=== PATIENT | male | born 1955 | race African-American/Black ===

== ENCOUNTER → 2018-06-13 10:23 | Outpatient (CLI) | payer BC | END | disposition home or self-care (01) | LOC: D.MRI 10:23 | PROVIDERS: ATTEND Nurse Practitioner Family | DX: M25.461 Effusion, right knee (principal) ==

== ENCOUNTER 2018-08-10 21:15 | Inpatient (IN) | payer BC ==
[~2018-08-10] VITALS: Ht 167.6 cm; Wt 79.4 kg
[2018-08-10] MEDS ORDERED: FLOMAX0.4 MG PO (21:25)
[2018-08-10 21:56] LABS: BASOPHILS 0.3 % (0-2); EOSINOPHILS 1.4 % (0-7); HEMATOCRIT 38.6 % (42.0-54.0); HEMOGLOBIN 12.6 g/dL (13.5-17.5); IMMATURE GRANULOCYTES 0.3 % (0-5); LYMPHOCYTES 37.3 % (15-50); MCHC 32.6 g/dL (31.0-37.0); MCV 88.7 fL (80.0-100.0); MEAN PLATELET VOLUME 10.7 fL (7.4-10.4); NEUTROPHILS 49.7 % (40-80); PLATELET COUNT 139 10x3/uL (130-400); RBC 4.35 10x6/uL (4.20-6.10); RDW 12.6 % (11.5-14.5); WBC 3.6 10x3/uL (4.8-10.8)
[2018-08-10 22:03] LABS: INR 1.11 (0.85-1.17); PROTIME 13.8 SECONDS (11.6-15.0)
[2018-08-10 22:04] LABS: APTT 30.6 SECONDS (22.8-39.4)
[2018-08-10 22:09] LABS: ALBUMIN 3.5 g/dL (3.4-5.0); ANION GAP 12.1 mmol/L (8-16); BILIRUBIN - TOTAL 1.05 mg/dL (0.2-1.3); CALCIUM 8.2 mg/dL (8.5-10.1); CARBON DIOXIDE 26.3 mmol/L (21.0-32.0); CREATININE - SERUM 1.1 mg/dL (0.6-1.3); POTASSIUM - SERUM 3.4 mmol/L (3.5-5.1); PROTEIN - SERUM 7.1 g/dL (6.4-8.2)
[2018-08-10 22:18] LABS: MAGNESIUM - SERUM 1.8 mg/dL (1.8-2.4); TROPONIN-I 0.045 ng/mL (0.000-0.060)
--- NOTE | 2018-08-10 23:33 | NUR ---
PT GIVEN JUICE AND SANDWICH AT THIS TIME.
[2018-08-11] MEDS ORDERED: SINGULAIR10 MG PO (00:42)
[2018-08-11] MEDS ORDERED: TERAZOSIN HCL2 MG PO (00:42)
[2018-08-11 00:57] VITALS: BP 115/55; BMI 28.3
--- NOTE | 2018-08-11 01:07 | NUR ---
RECIEVED REPORT FROM BISI HODGE IN ER. ARRIVED TO FLOOR AT 0010 IN W/C WITH . ALERT AND ORIENTED X4. UP AD DIONI. LUNG SOUNDS WHEEZES TO RIGHT SIDE AND CRACKLES IN LEFT LOBES. ABSX4. NO EDEMA OBSERVED. SKIN WARM AND MOIST ALSO, INTACT. DENIES ANY CHEST PAIN AT THIS TIME. IV TO LEFT AC SL.. TELEMETRY IN PLACE. DENIES ANY NEEDS AT THIS TIME.
--- NOTE | 2018-08-11 03:16 | NUR ---
PT UNSURE OF ALL HIS MEDICATIONS. SPOUSE WILL BRING LIST OF MEDICATIONS TOMORROW.
[2018-08-11 04:00] VITALS: BP 106/64
--- NOTE | 2018-08-11 05:40 | NUR ---
TEMP 102.5. NOTIFIED DR. SANTIAGO WITH NEW ORDERS FOR TYLENOL 650MG PO Q6 HR PRN FOR TEMP. ROBITUSSIN 10ML FOR CONGESTION AND STAT CHEST XRAY ALSO, LEVAQUIN 750MG IV Q24 HRS. SPOUSE AT BEDSIDE AND AWARE.
[2018-08-11 05:54] LABS: BASOPHILS 0.3 % (0-2); EOSINOPHILS 1.2 % (0-7); HEMATOCRIT 36.6 % (42.0-54.0); HEMOGLOBIN 11.8 g/dL (13.5-17.5); LYMPHOCYTES 49.5 % (15-50); MCH 28.8 pg (26.0-34.0); MCHC 32.2 g/dL (31.0-37.0); MCV 89.3 fL (80.0-100.0); MEAN PLATELET VOLUME 10.8 fL (7.4-10.4); MONOCYTES 11.2 % (2-11); NEUTROPHILS 37.8 % (40-80); PLATELET COUNT 147 10x3/uL (130-400); RDW 12.6 % (11.5-14.5); WBC 3.3 10x3/uL (4.8-10.8)
[2018-08-11 06:17] LABS: ALBUMIN 3.1 g/dL (3.4-5.0); BILIRUBIN - TOTAL 1.23 mg/dL (0.2-1.3); CARBON DIOXIDE 28.5 mmol/L (21.0-32.0); CREATININE - SERUM 1.1 mg/dL (0.6-1.3); POTASSIUM - SERUM 3.5 mmol/L (3.5-5.1); PROTEIN - SERUM 6.3 g/dL (6.4-8.2); TROPONIN-I 0.046 ng/mL (0.000-0.060)
[2018-08-11 07:46] VITALS: BP 95/59
[2018-08-11] MEDS ORDERED: IBUPROFEN800 MG PO (10:51)
[2018-08-11 11:46] VITALS: BP 113/64
[2018-08-11 13:01] LABS: % SATURATION 16 % (15-55); IRON 31 ug/dl (35-150); TOTAL IRON BIND CAPACITY 191 ug/dl (260-445); UNSAT IRON BIND CAPACITY 160 ug/dl (150-375)
[2018-08-11 15:21] VITALS: BP 119/68
--- NOTE | 2018-08-11 16:49 | NUR ---
ALERT AND ORIENTED X4. SITTING UP IN BED. REMAINS AFEBRILE DURING SHIFT. CURRENT TEMP 98.9. SPOUSE AT BEDSIDE. SINUS RHYTHM 62 ON TELEMETRY. DENIES ANY NEEDS. CONTINUE PLAN OF CARE AND SAFETY PRECAUTIONS.
[2018-08-11 17:48] LABS: APPEARANCE CLEAR (CLEAR); BILIRUBIN NEGATIVE (NEGATIVE); COLOR DK YELLOW (YELLOW); GLUCOSE NEGATIVE (NEGATIVE); KETONE NEGATIVE (NEGATIVE); NITRITE NEGATIVE (NEGATIVE); PROTEIN TRACE mg/dL (NEGATIVE); SPECIFIC GRAVITY 1.025 (1.005-1.020); UROBILINOGEN NORMAL (NORMAL)
--- NOTE | 2018-08-11 17:59 | NUR ---
ALERT AND ORIENTED X4. SITTING UP IN BED. UA COLLECTED AND TAKEN TO LAB. NO CHANGE. CONTINUE PLAN OF CARE AND SAFETY PRECAUTIONS.
--- NOTE | 2018-08-11 19:37 | NUR ---
RECIEVED UP IN BED WITH EYES OPEN. ALERT AND ORIENTED X4. C/O COUGH THAAT IS CAUSING CHEST PAIN. GUIASSFEN GIVEN PER ORDERS. REQUESTED COFF. COFF NAD WATER GIVEN IV TO LT FA SL.. TELEMETRY IN PLACE. DENIES ANY OTHER NEEDS.
[2018-08-11 20:00] VITALS: BP 121/67
[2018-08-12 00:11] VITALS: BP 116/61
[2018-08-12 04:00] VITALS: BP 118/72
[2018-08-12 06:25] LABS: BASOPHILS 0.6 % (0-2); EOSINOPHILS 5.7 % (0-7); HEMATOCRIT 35.9 % (42.0-54.0); HEMOGLOBIN 11.6 g/dL (13.5-17.5); LYMPHOCYTES 46.3 % (15-50); MCH 28.5 pg (26.0-34.0); MCHC 32.3 g/dL (31.0-37.0); MCV 88.2 fL (80.0-100.0); MEAN PLATELET VOLUME 10.8 fL (7.4-10.4); MONOCYTES 10.8 % (2-11); NEUTROPHILS 36.6 % (40-80); PLATELET COUNT 136 10x3/uL (130-400); RBC 4.07 10x6/uL (4.20-6.10); RDW 12.4 % (11.5-14.5); WBC 3.2 10x3/uL (4.8-10.8)
[2018-08-12 06:42] LABS: CALC OSMOLALITY 276 mosm/kg (275-300); CALCIUM 8.1 mg/dL (8.5-10.1); CARBON DIOXIDE 30.5 mmol/L (21.0-32.0); CHLORIDE - SERUM 103 mmol/L (98-107); CREATININE - SERUM 0.9 mg/dL (0.6-1.3); GLUCOSE 106 mg/dL (74-106); POTASSIUM - SERUM 3.4 mmol/L (3.5-5.1); SODIUM 139 mmol/L (136-145); UREA NITROGEN 11 mg/dL (7-18); eGFR NON AFRICAN AMERICAN 90 mL/min (90-120)
--- NOTE | 2018-08-12 08:36 | NUR ---
ALERT AND ORIENTED. TELEMERTY SHOWS SR. UP AB DIONI. NO NEEDS VOICED. LEFT FA SL WILL MONITOR
[2018-08-12 09:01] VITALS: BP 114/63
[2018-08-12 11:41] VITALS: BP 115/60
[2018-08-12 13:42] VITALS: Ht 167.6 cm; Wt 79.4 kg
--- NOTE | 2018-08-12 15:56 | NUR ---
I have reviewed this patient and I concur with the Shift Assessment completed by the Licensed Practical Nurse today this shift.
[2018-08-12 18:48] VITALS: BP 106/61
--- NOTE | 2018-08-12 19:29 | NUR ---
RECIEVED RESTING IN BED WITH EYES CLOSED AND TV ON. EASILY AROUSES WITH VERBAL STIMULI. ORIENTED X4. IV TO LEFT FA SL.. TELEMETRY IN PLACE. DENIES ANY NEEDS AT THIS TIME.
[2018-08-12 20:00] VITALS: BP 122/62
--- NOTE | 2018-08-12 20:02 | NUR ---
SWAB COLLECTED FOR INFLUENZA TEST. SENT TO LAB.
[2018-08-13] VITALS: BP 119/58
[2018-08-13 04:00] VITALS: BP 91/60
[2018-08-13 05:45] LABS: BASOPHILS 0.5 % (0-2); EOSINOPHILS 7.7 % (0-7); HEMATOCRIT 37.3 % (42.0-54.0); HEMOGLOBIN 12.3 g/dL (13.5-17.5); LYMPHOCYTES 31.8 % (15-50); MCH 28.9 pg (26.0-34.0); MCV 87.6 fL (80.0-100.0); MEAN PLATELET VOLUME 10.9 fL (7.4-10.4); MONOCYTES 10.9 % (2-11); NEUTROPHILS 49.1 % (40-80); PLATELET COUNT 145 10x3/uL (130-400); RBC 4.26 10x6/uL (4.20-6.10); RDW 12.3 % (11.5-14.5)
[2018-08-13 06:04] LABS: CALC OSMOLALITY 278 mosm/kg (275-300); CARBON DIOXIDE 30.4 mmol/L (21.0-32.0); CHLORIDE - SERUM 104 mmol/L (98-107); CREATININE - SERUM 0.9 mg/dL (0.6-1.3); GLUCOSE 106 mg/dL (74-106); POTASSIUM - SERUM 3.9 mmol/L (3.5-5.1); SODIUM 139 mmol/L (136-145); eGFR NON AFRICAN AMERICAN 90 mL/min (90-120)
[2018-08-13 06:05] LABS: UREA NITROGEN 14 mg/dL (7-18)
--- NOTE | 2018-08-13 07:00 | NUR ---
RECEIVED REPORT. ASSUMED CARE OF PATIENT. PATIENT RESTING IN BED WITH EYES OPEN, ATTENTION TOWARD TELEVISION. CALL LIGHT WITHIN REACH. NO DISTRESS. RESP EVEN AND UNLABORED. NO COUGH NOTED AT THIS TIME. PATIENT STATES HE FEELS MUCH BETTER THAN ON DAY OF ADMISSION.
--- NOTE | 2018-08-13 07:20 | NUR ---
IN TO SEE PATIENT FOR AM ROUNDS.
[2018-08-13 08:09] VITALS: BP 123/69
[2018-08-13 08:13] LABS: FOLATE (FOLIC ACID) - SERUM >20.0 ng/mL (>3.0)
--- NOTE | 2018-08-13 11:30 | NUR ---
RESTING IN BED WITH EYES OPEN. MALE VISITOR AT BEDSIDE. CALL LIGHT WITHIN REACH. NO DISTRESS. FRESH ICE WATER PROVIDED.
[2018-08-13 12:09] VITALS: BP 94/60
--- NOTE | 2018-08-13 14:00 | NUR ---
IV FLUSHED FOR PATENTCY. NO DISTRESS. PATIENT SISTERS AT BEDSIDE. CALL LIGHT WITHIN REACH.
--- NOTE | 2018-08-13 16:24 | NUR ---
PATIENT FOUND SITTING IN ROOM. PATIENT STATED SHE ARRIVED TO ROOM ABOUT 1610. PATIENT SITTING ON SIDE OF BED. PATIENTS DAUGHTER IN ROOM. NO IV ACCESS PATIENT IS A DIRECT ADMIT FROM OFFICE. ORIENTED TO ROOM. CALL LIGHT JERICA SANCHEZ. AWAITING FOR MEDICATION LIST FROM DR. CRAMER OFFICE TO FAX LIST OVER. PATIENT ON ROOM AIR, DOES WEAR HOME OXYGEN 1L/NC WHILE SLEEPING. NO DISTRESS.
[2018-08-13 16:34] VITALS: BP 132/90; BP 136/70
--- NOTE | 2018-08-13 17:30 | NUR ---
RESTING IN BED WITH EYES OPEN. PATIENT SISTERS HAVE LEFT FOR THE DAY. CALL LIGHT WITHIN REACH. NO DISTRESS.
[2018-08-13] MEDS ORDERED: LEVAQUIN750 MG PO (18:23)
--- NOTE | 2018-08-13 21:13 | NUR ---
REMOVED PATIENT'S LEFT AC PIV. NO BLEEDING NOTED. REVIEWED PATIENT'S DISCHARGE INSTRUCTIONS PATIENT STATED HE UNDERSTOOD AND SIGNED PAPERWORK. ASSISTED PATIENT TO FRONT DOOR VIA WHEELCHAIR.
--- NOTE | 2018-08-15 09:43 | MORECARE ---
CASE MANAGEMENT DISCHARGE SUMMARY PATIENT: HANNAH ODOM UNIT: [id number] ADM DATE: 08/11/18 AGE: 62 : 51 SEX: M ROOM/BED: D.2125 AUTHOR: NATO ARELLANO PHYSICIAN: REFERRING PHYSICIAN: PEARL SANTIAGO MD DATE OF SERVICE: 08/15/18 Discharge Plan Patient Name: HANNAH ODOM Facility: [facility]:[place] : 1955 Planned Disposition: Home Anticipated Discharge Date: 08/13/18 Discharge Date: 08/13/2018 Expected LOS: 2 Initial Reviewer: [email or web address] Initial Review Date: 08/15/2018 Generated: 08/15/18 10:43 am Patient Name: HANNAH ODOM Page [id number] at 0943 All edits/amendments must be made on the electronic document DICTATION DATE: 08/15/18942 ASBESTOS CLOTH INSPECTOR: DM 08/15/1843 RPT#: [id number] DC DATE:08/13/18 STATUS: DIS IN [facility] [address] [place] [address] END OF REPORT
== END 2018-08-13 21:16 | disposition home or self-care (01) | DRG 206 ==
LOC: D.ER 21:15 → D.M2 23:38 → OBSVTIME 23:38 → D.M2 08-11 17:00
PROVIDERS: Family Medicine; ADMIT Internal Medicine Nephrology; ATTEND Internal Medicine Nephrology
DX: M94.0 Chondrocostal junction syndrome [Tietze] (principal); J20.9 Acute bronchitis, unspecified; E87.6 Hypokalemia; D64.9 Anemia, unspecified

== ENCOUNTER 2018-09-03 05:12 | Day surgery (SDC) | payer BC ==
[~2018-09-03] VITALS: Ht 167.6 cm; Wt 79.4 kg
[~2018-09-03 05:12] MED LIST: FLOMAX0.4 MG PO; IBUPROFEN800 MG PO; LEVAQUIN750 MG PO; SINGULAIR10 MG PO; TERAZOSIN HCL2 MG PO
[2018-09-03 05:59] VITALS: BP 129/69; Ht 167.6 cm; Wt 79.4 kg
--- NOTE | 2018-09-03 08:20 | NUR ---
0815 URINAL PROVIDED PT. AT BEDSIDE. FL DIET ORDERED.
--- NOTE | 2018-09-03 08:24 | NUR ---
0865 DR. ALEJO BAKER.
--- NOTE | 2018-09-03 08:53 | OP ---
PATIENT NAME: HANNAH ODOM MEDICAL RECORD: [id number] :51 LOCATION:D.OPS ADMISSION DATE: SURGEON: TRAVIS DHILLON MD DATE OF OPERATION: 09/03/2018 SURGEON: Travis Dhillon MD ANESTHESIA: TIVA by Tonie Perez CRNA. DIAGNOSES: Elevated PSA of 4.7 on 07/09/2018, bladder outlet obstruction. PROCEDURE: Cystoscopy, transrectal ultrasound and prostate biopsy. FINDINGS: On cystoscopy, bilateral lateral lobe hyperplasia with no median lobe. Single ureteral orifices bilaterally with no bladder tumors. On transrectal ultrasound, 19 gram prostate. SPECIMENS: Prostate biopsy cores. BLOOD LOSS: Minimal. CLINICAL HISTORY: This is a 62-year-old male, who has an elevated PSA level of 4.7. One year ago, the PSA was 3.7. FAMILY HISTORY: Negative for BPH and prostate cancer. He has mild voiding symptoms. He comes today for prostate biopsy. He is allergic to no medications. He was given Ancef director phone to the OR. DESCRIPTION OF PROCEDURE: The patient was given IV sedation. He was placed in the lithotomy position and prepped and draped. Cystoscopy was performed using a 17-Beninese scope. Findings are as outlined above. The bladder was emptied through the scope sheath and the scope was removed. We then performed prostate size measurements using the transrectal ultrasound probe. Prostate size was estimated at 19 grams. Sextant biopsies were obtained with at least 3 cores from each sextant. Once all the specimens were obtained, the procedure was terminated. I will see the patient in followup next week to review the pathology results with him. TRANSINT:[id number] Voice Confirmation ID: [id number] DOCUMENT ID: [id number] TRAVIS DHILLON MD at 0853 CC: [id number] DICTATION DATE: 09/03/18 0818 BUDGET AND POLICY ANALYST: 09/03/18 0850 [facility] [address] [place] [id number]
== END 2018-09-03 08:50 | disposition home or self-care (01) ==
LOC: D.OPS 05:12 → D.PAN 07:30 → D.OPS 07:30 → D.PAN 10:00 → D.OPS 10:15
PROVIDERS: ATTEND Urology
DX: N40.1 Benign prostatic hyperplasia with lower urinary tract symptoms (principal); N13.8 Other obstructive and reflux uropathy; Z01.812 Encounter for preprocedural laboratory examination

== ENCOUNTER → 2019-02-27 11:29 | Outpatient (CLI) | payer MEDICARE, BC ==
[2018-09-03 05:59] VITALS: BMI 28.3
[2019-02-27 12:41] LABS: BASOPHILS 0.2 % (0-2); EOSINOPHILS 3.3 % (0-7); HEMATOCRIT 40.4 % (42.0-54.0); HEMOGLOBIN 12.7 g/dL (13.5-17.5); IMMATURE GRANULOCYTES 0.2 % (0-5); LYMPHOCYTES 38.5 % (15-50); MCH 28.9 pg (26.0-34.0); MCHC 31.4 g/dL (31.0-37.0); MEAN PLATELET VOLUME 11.3 fL (7.4-10.4); MONOCYTES 8.7 % (2-11); NEUTROPHILS 49.1 % (40-80); PLATELET COUNT 159 10x3/uL (130-400); RBC 4.39 10x6/uL (4.20-6.10); RDW 12.3 % (11.5-14.5); WBC 4.5 10x3/uL (4.8-10.8)
[2019-02-27 13:11] LABS: ALBUMIN 3.6 g/dL (3.4-5.0); ALKALINE PHOSPHATASE 84 U/L (46-116); ALT (SGPT) 33 U/L (10-68); BILIRUBIN - TOTAL 0.42 mg/dL (0.2-1.3); CALC OSMOLALITY 287 mosm/kg (275-300); CALCIUM 8.4 mg/dL (8.5-10.1); CARBON DIOXIDE 32.6 mmol/L (21.0-32.0); CHLORIDE - SERUM 106 mmol/L (98-107); CREATININE - SERUM 0.9 mg/dL (0.6-1.3); GLUCOSE 93 mg/dL (74-106); SODIUM 144 mmol/L (136-145); UREA NITROGEN 14 mg/dL (7-18); eGFR NON AFRICAN AMERICAN 90 mL/min (90-120)
[2019-02-27 13:39] LABS: APPEARANCE CLEAR (CLEAR); COLOR YELLOW (YELLOW); NITRITE NEGATIVE (NEGATIVE)
[2019-02-27 13:40] LABS: BACTERIA FEW /hpf (NEGATIVE); BILIRUBIN NEGATIVE (NEGATIVE); EPITHELIAL CELLS RARE /hpf (0-5); GLUCOSE NEGATIVE (NEGATIVE); KETONE NEGATIVE (NEGATIVE); PROTEIN NEGATIVE (NEGATIVE); RED CELLS - URINE RARE /hpf (0-5); WHITE CELLS - URINE RARE /hpf (NEGATIVE)
[2019-02-27 15:15] LABS: ERYTHROCYTE SEDIMENTATION RATE 5 mm/hr (0-20)
[2019-02-28 09:10] LABS: ANA REFLEX - DIRECT Negative (Negative)
[2019-02-28 12:10] LABS: ANTI-STREPTOLYSIN O <20.0 IU/mL (0.0-200.0); IMMUNOGLOBULIN A 254 mg/dL (61-437); IMMUNOGLOBULIN G 1142 mg/dL (700-1600); IMMUNOGLOBULIN M 108 mg/dL (20-172)
[2019-03-01 04:07] LABS: COMPLEMENT - TOTAL CH50 >60 U/mL (42-999999)
[2019-03-03 08:08] LABS: IMMUNOGLOBULIN E 229 IU/mL (6-495)
== END | disposition home or self-care (01) ==
LOC: D.LAB 11:29
PROVIDERS: ATTEND Allergy & Immunology
DX: L50.9 Urticaria, unspecified (principal)

== ENCOUNTER → 2019-05-05 11:52 | Outpatient (CLI) | payer MEDICARE, BC ==
[2018-09-03 05:59] VITALS: BMI 28.3
== END | disposition home or self-care (01) ==
LOC: D.LAB 11:52
PROVIDERS: ATTEND Urology
DX: C61 Malignant neoplasm of prostate (principal)

== ENCOUNTER → 2019-05-15 08:47 | Outpatient (CLI) | payer MEDICARE, BC ==
[2018-09-03 05:59] VITALS: BMI 28.3
== END | disposition home or self-care (01) ==
LOC: D.NM 08:47
PROVIDERS: ATTEND Urology
DX: C61 Malignant neoplasm of prostate (principal)